=== PATIENT | female | born 1955 | race Caucasian/White ===

== ENCOUNTER 2019-08-01 13:25 | Emergency (ER) | payer MEDICARE ==
[2019-08-01 13:48] VITALS: BP 188/86; PULSE 96
--- NOTE | 2019-08-01 15:20 | EDM.PDOC ---
ED HPI GENERAL MEDICAL PROBLEM - General Chief Complaint: Lower Extremity Injury/Pain Stated Complaint: LEFT FOOT PAIN,NUMBNESS UP THE LEG Time Seen by Provider: 08/01/19 13:50 Source of Information: Reports: Patient, Old Records History Limitations: Reports: No Limitations - History of Present Illness INITIAL COMMENTS - FREE TEXT/NARRATIVE: pt arrived with pain in the left foot. In May she dropped a bench on the foot. At first she was told she did not hjave a fracture but then recently she had a MRI which showed a undisplaced fracture in the first metatarsal. She is having alot of coolness in the foot and she is feeling numbness in the left leg. She has also noted color changes in the foot. Onset: Gradual, Other (last 2-3 days. ) Duration: Hour(s): Location: Reports: Lower Extremity, Left Associated Symptoms: Reports: No Other Symptoms - Related Data Allergies Allergy/AdvReac Type Severity Reaction Status Date / Time oxycodone [From Percocet] Allergy Other Verified 08/01/19 13:59 propoxyphene Allergy Nausea and Verified 08/01/19 13:59 [From Darvocet-N] Vomiting Home Meds: Home Meds Acetaminophen [Tylenol Extra Strength] 500 mg PO ASDIRECTED PRN 12/07/15 [ History] Hydrochlorothiazide 75 mg PO DAILY 12/07/15 [History] Ibuprofen [Advil] 600 mg PO ASDIRECTED PRN 12/07/15 [History] Levothyroxine Sodium [Synthroid] 75 mcg PO ACBREAKFAST 12/07/15 [History] Gabapentin [Neurontin] 300 mg PO TID 05/26/16 [History] Past Medical History HEENT History: Reports: Impaired Vision Cardiovascular History: Reports: Hypertension, Other (See Below) Other Cardiovascular History: mitrovalve prolapse Genitourinary History: Reports: None 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 pain to left knee and right hip Endocrine/Metabolic History: Reports: Hypothyroidism Hematologic History: Reports: Blood Transfusion(s) - Past Surgical History Head Surgeries/Procedures: Reports: None HEENT Surgical History: Reports: Cataract Surgery, Tonsillectomy Cardiovascular Surgical History: Reports: None Female Surgical History: Reports: Salpingo-Oophorectomy Endocrine Surgical History: Reports: None Musculoskeletal Surgical History: Reports: Arthroscopic Procedure, Other (See Below) Dermatological Surgical History: Reports: None Social & Family History - Tobacco Use Smoking Status *Q: Former Smoker Used Tobacco, but Quit: Yes Month/Year Tobacco Last Used: 1991 Second Hand Smoke Exposure: No - Caffeine Use Caffeine Use: Reports: Coffee, Tea - Recreational Drug Use Recreational Drug Use: No Review of Systems - Review of Systems Review Of Systems: See Below Constitutional: Reports: No Symptoms Eyes: Reports: No Symptoms Ears: Reports: No Symptoms Nose: Reports: No Symptoms Mouth/Throat: Reports: No Symptoms Respiratory: Reports: No Symptoms Cardiovascular: Reports: No Symptoms Musculoskeletal: Reports: Other ( fracture in the left foot, recent color change and the foot is cool. ) ED EXAM, GENERAL - Physical Exam Exam: See Below Free Text/Narrative:: pt arrived she had a injry to the left foot in May. She continues to have pain. She is feeling like the foot is cool and there is some definite changes. Exam Limited By: No Limitations General Appearance: Alert, Anxious, Mild Distress Ears: Normal External Exam Nose: Normal Inspection Throat/Mouth: Normal Inspection Head: Atraumatic Neck: Normal Inspection Extremities: Other (left foot is cool There is filling He has weaker pulses in the post tibial area and dorsalis pedis. She also is noting numbness up the leg. ) Neurological: Alert, Oriented, Normal Cognition Course - Vital Signs Last Recorded V/S: Last Vital Signs Temp 36.9 C 08/01/19 13:55 Pulse 96 08/01/19 13:55 Resp 16 08/01/19 13:55 BP 188/86 H 08/01/19 13:55 Pulse Ox 100 08/01/19 13:55 - Orders/Labs/Meds Orders: Active Orders 24 hr Category Date Time Status VL Duplex Lwr Ext Art Ltd Lt [US] Stat Exams 08/01/19 14:30 Taken VL Duplex Lwr Ext Veins Ltd Lt [US] Stat Exams 08/01/19 14:30 Taken Potassium Chloride [Potassium Chloride Solution] Med 08/01/19 16:20 Once 20 meq PO ONETIME ONE Labs: Laboratory Tests 08/01/19 08/01/19 Range/Units 15:09 15:55 WBC 6.1 (4.5-11.0) K/uL RBC 4.46 (3.30-5.50) M/uL Hgb 13.3 (12.0-15.0) g/dL Hct 39.7 (36.0-48.0) % MCV 89 (80-98) fL MCH 30 (27-31) pg MCHC 34 (32-36) % Plt Count 291 (150-400) K/uL Neut % (Auto) 58 (36-66) % Lymph % (Auto) 23 L (24-44) % [place] % (Auto) 10 H (2-6) % Eos % (Auto) 8 H (2-4) % Baso % (Auto) 2 H (0-1) % Sodium 130 L (140-148) mmol/L Potassium 3.0 L (3.6-5.2) mmol/L Chloride 93 L (100-108) mmol/L Carbon Dioxide 31 (21-32) mmol/L Anion Gap 9.0 (5.0-14.0) mmol/L BUN 5 L (7-18) mg/dL Creatinine 0.7 (0.6-1.0) mg/dL Est Cr Clr Drug Dosing 70.11 mL/min Estimated GFR (MDRD) > 60 (>60) Glucose 113 H (74-106) mg/dL Calcium 8.8 (8.5-10.1) mg/dL - Re-Assessments/Exams Free Text/Narrative Re-Assessment/Exam: 08/01/19 15:51 pt had a us on the left leg both arterial and venous. This did look good. Departure - Departure Time of Disposition: 15:51 Disposition: Home, Self-Care 01 Condition: Fair Clinical Impression: Fracture of first metatarsal bone, Reflex sympathetic dystrophy of left lower extremity, Hypokalemia - Discharge Information Referrals: Katelyn Mir PA [Primary Care Provider] - Forms: ED Department Discharge Care Plan Goals: appt with Dr hastings or ortho tomorrow, motrin 600mg tid, consider steriods if indicated. kcl 20 meq daily Sepsis Event Note - Evaluation Sepsis Screening Result: No Definite Risk - Focused Exam Vital Signs: Vital Signs Temp Pulse Resp BP Pulse Ox 08/01/19 13:55 36.9 C 96 16 188/86 H 100 08/01/19 13:47 36.9 C 96 16 188/86 H 100 Date Exam was Performed: 08/01/19 Time Exam was Performed: 16:21 - My Orders Last 24 Hours: My Active Orders 08/01/19 14:30 VL Duplex Lwr Ext Art Ltd Lt [US] Stat VL Duplex Lwr Ext Veins Ltd Lt [US] Stat 08/01/19 16:20 Potassium Chloride [Potassium Chloride Solution] 20 meq PO ONETIME ONE - Assessment/Plan Last 24 Hours: My Active Orders 08/01/19 14:30 VL Duplex Lwr Ext Art Ltd Lt [US] Stat VL Duplex Lwr Ext Veins Ltd Lt [US] Stat 08/01/19 16:20 Potassium Chloride [Potassium Chloride Solution] 20 meq PO ONETIME ONE
[2019-08-01] MEDS ORDERED: Potassium Chloride 10% 20 MEQ/15 ML Soln 15 ML UD Cup PO ONE (16:20)
[2019-08-01] MEDS ORDERED: Potassium Chloride 20 MEQ Tab.ER PO ONE (16:30)
--- NOTE | 2019-08-02 10:05 | US ---
VL Duplex Lwr Ext Veins Ltd Lt INDICATION: same FINDINGS: Ultrasound examination of the lower extremity using Doppler and compressive technique demonstrates that the common femoral, femoral, and popliteal veins are patent, and are compressible throughout. The calf veins were segmentally visualized and are negative where seen. IMPRESSION: Negative for deep venous thrombosis.
--- NOTE | 2019-08-02 10:07 | US ---
VL Duplex Lwr Ext Art Ltd Lt CLINICAL HISTORY: Cold foot, numbness FINDINGS: There are multiphasic waveforms through the left lower leg arterial system from the common femoral artery down to the posterior tibial and dorsal pedal arteries. There is some mild elevation of velocity in the mid SFA. IMPRESSION: Normal Doppler waveforms Mild focal elevation of velocity in the mid SFA could represent a mild stenosis
== END 2019-08-01 16:33 | disposition home or self-care (01) ==
LOC: JP.ED 13:25
DX: S92.315A Nondisplaced fracture of first metatarsal bone, left foot, initial encounter for closed fracture (principal); E87.6 Hypokalemia; G90.522 Complex regional pain syndrome I of left lower limb; E03.9 Hypothyroidism, unspecified; I10 Essential (primary) hypertension; Z87.891 Personal history of nicotine dependence; Z88.5 Allergy status to narcotic agent; Z88.8 Allergy status to other drugs, medicaments and biological substances; Z79.899 Other long term (current) drug therapy; W20.8XXA Other cause of strike by thrown, projected or falling object, initial encounter; M79.672 Pain in left foot
CPT/HCPCS: 36415; 80048; 85025; 93926; 93971; 99283; 99284; A9270

== ENCOUNTER 2019-09-05 07:41 | Day surgery (SDC) | payer MEDICARE ==
[2019-09-05] MEDS ORDERED: Sodium Chloride 0.9% 1,000 ML IV SCH (08:15)
[2019-09-05] MEDS ORDERED: Propofol 200 MG/20 ML SDV ONE (09:05)
[2019-09-05] MEDS ORDERED: fentaNYL 100 MCG/2 ML SDV ONE (09:05)
[2019-09-05] MEDS ORDERED: Midazolam 1 MG/ML 2 ML SDV ONE (09:06)
[2019-09-05] MEDS ORDERED: ceFAZolin 2 GM in Premix Bag 1 BAG IV ONE (09:15)
[2019-09-05 09:53] VITALS: PULSE 70
[2019-09-05 10:13] VITALS: BP 125/86
--- NOTE | 2019-09-05 14:00 | OR ---
DATE OF PROCEDURE: 09/05/2019 SURGEON: Yousif Ortiz MD PROCEDURE: Colonoscopy. FINDINGS: Very mild diverticulosis. PREOPERATIVE DIAGNOSIS: Family history of colorectal cancer. POSTOPERATIVE DIAGNOSIS: Family history of colorectal cancer. RISKS: Risks, benefits, alternatives, and limitations including, but not limited to infection, bleeding, and perforation were explained to the patient who wished to proceed. PROCEDURE IN DETAIL: The patient was placed in left lateral decubitus position. Digital rectal exam was performed without abnormality. Scope was introduced and advanced atraumatically to the ileocecal valve. Scope was brought back through the ascending, transverse, descending colon, and retroflexed. No evidence of old or new blood. No masses. Diverticulosis was described as very mild, limited to sigmoid colon with no abnormalities on retroflexion. The patient tolerated the procedure well. Yousif Ortiz MD /[id number]
== END 2019-09-05 10:52 | disposition home or self-care (01) ==
LOC: JP.SDS 07:41
PROVIDERS: ATTEND Surgery
DX: Z12.11 Encounter for screening for malignant neoplasm of colon (principal); K57.30 Diverticulosis of large intestine without perforation or abscess without bleeding; I10 Essential (primary) hypertension; Z80.0 Family history of malignant neoplasm of digestive organs
CPT/HCPCS: G0105; J0690; J2250; J2704; J3010; J7030